=== PATIENT | male | born 1955 | race Caucasian/White ===

== ENCOUNTER 2017-01-22 11:06 | Inpatient (IN) ==
--- NOTE | 2017-01-22 11:31 | Anesthesia Evaluation PreOp ---
Date of Encounter: 01/22/17 Time of Encounter: 11:29 - Past History Planned Operation: left TKA, with robotic assistance Cardiac History: HTN, Hyperlipidemia, Other (CAD) Pulmonary History: Former smoker (stopped 12 yrs ago) GUARD DRIVER History: Denies Any Significant HX Other Medical History: Other (Erectile dysfunction) Anesthesia History: No Prior Anesthetic Complications, Past Anesthesia (right knee, left shoulder, RCR, orchiectomy right) Alcohol Use: none Drug use: none Medications and Allergies 3 Allergy/AdvReac Type Severity Reaction Status Date / Time No Known Allergies Allergy Verified 01/15/17 14:30 - Meds/Allergy Pre-op Review Medications Reviewed: Yes Allergies Reviewed: Yes Beta Blockers on Current Med List: Yes If Beta Blockers taken, Date/Time (Last Dose taken): today 644 Anesthesia Results - Imaging Additional studies: echo: Impressions: Normal left ventricular systolic function, LVEF 65%. Mild left ventricular diastolic dysfunction. Normal right ventricular size and function. No significant valvular dysfunction. stress test 2017: Impression: The exercise capacity was average. Exercise ECG is negative for ischemia. Gated LVEF > 70%. Perfusion imaging was negative for ischemia or infarct. Anesthesia Exam Weight: 92.5kg NPO (# of Hours): 8 - HEENT Pupil (Motor): EOMI Mallampati: II Teeth: Edentulous Oral Opening: Greater than 3 - GUARD DRIVER LOC: Oriented GUARD DRIVER Motor: Normal RUE, Normal LUE, Normal RLE, Normal LLE, Normal Face GUARD DRIVER Sensory: Normal: RUE, LUE, RLE, LLE, Face - Cardiac Rhythm: Regular Murmur: None - Pulmonary Breath Sounds: bilateral Clear Respiratory Effort: Symmetrical Anesthesia Assess/Plan ASA Score: 2 Modified Aura Scale for Level of Consciousness: Cooperative, oriented, and tranquil Anesthetic Plan: General Monitoring Plan: Standard Monitors Recovery Plan: PACU (discussed GA, agrees to block and GA.)
[2017-01-22] MEDS ORDERED: CeFAZolin Syr 2,000MG/20 ML 2,000 MG/20 ML SYRINGE IVPB ONE (12:13)
[2017-01-22] MEDS ORDERED: Ketorolac 15 MG/ML VIAL IVP ONE (12:13)
[2017-01-22] MEDS ORDERED: Ringers Solution, Lactated 1,000 ML IVC SCH ×3 (12:15→20:04)
[2017-01-22] MEDS ORDERED: Dexamethasone 4 MG/ML VIAL IVP ONE (12:17)
[2017-01-22] MEDS ORDERED: Ketorolac 30 MG/ML VIAL IVP ONE (13:15)
[2017-01-22] MEDS ORDERED: Ethanol\\Acetic Acid\\Na Ace\\Ben 1,000 ML IRRIG.SOLN IR ONE (14:37)
--- NOTE | 2017-01-22 14:49 | History & Physical Report ---
Date of Encounter: 01/22/17 Time of Encounter: 14:48 24 Hour HP Update - Instructions Instructions: If the History and Physical is less than 30 days old and was completed prior to A.M. admission and or procedure and has NOT been updated on calendar day of procedure please complete this update prior to performing procedure. - Update Patient reports changes in Medical Condition: No Changes in examination, assessment, or condition: No Changes in Medication: No Preop tests/diagnostics Reviewed: Yes Surgery Remains Indicated: Yes Consent for Planned Operative Procedure(s) Verified: Yes
[2017-01-22] MEDS ORDERED: ROPIVACAINE HCL/PF 0.5% 30 ML VIAL ONE (15:03)
[2017-01-22] MEDS ORDERED: Bupivacaine/Clonidine Syringe 1 EACH SYRINGE ONE (15:04)
[2017-01-22] MEDS ORDERED: Dexamethasone 4 MG/ML VIAL ONE (15:05)
[2017-01-22] MEDS ORDERED: *HR* Succinylcholine 200 MG/10 ML VIAL IVP ONE (15:05)
[2017-01-22] MEDS ORDERED: Lidocaine -MPF 2% 2 ML VIAL ONE (15:05)
[2017-01-22] MEDS ORDERED: *HR* FentaNYL (PF) 100 MCG/2 ML VIAL ONE ×2 (15:05→17:23)
[2017-01-22] MEDS ORDERED: Ondansetron 4 MG/2 ML VIAL ONE (15:05)
[2017-01-22] MEDS ORDERED: *HR* Propofol 200 MG/20 ML VIAL IVP ONE (15:06)
[2017-01-22] MEDS ORDERED: *HR* Midazolam HCl 2 MG/2 ML VIAL ONE (15:06)
--- NOTE | 2017-01-22 15:30 | Anesthesia Procedures ---
Date of Encounter: 01/22/17 Time of Encounter: 11:29 Procedures: Anesthesia - Nerve Block Procedure Date: 01/22/17 Time: 15:10 Pre-op Diagnosis: Arthropathy Left Knee Surgical Procedure: Left TKA Robotic Assisted Checklist: Correct Patient Identifier Correct side: Left Blood Thinner: No Monitor Applied: EKG, BP, Pulse Oximetry Supplemental Oxygen via Nasal Cannula (L/min): 2 Sedation: Versed (mg): 2 Sedation: Fentanyl (mcg): 100 Indication: Post Op Analgesia Pre-op Neuro Deficits: No Block Type: Other (Adductor Canal Block) Catheter placed: No Depth at skin (cm): 3 Sterile Technique: Yes Ultrasound used: Yes Anatomy identified: Yes Visual spread of Local: Yes Blood on Needle Aspiration: No Smooth Injection of Local: Yes Pain with Injection of Local: No Prep: Chlorhexadine Needle: 22 x 50 mm Stimuplex Local: 0.25% Bupivicaine w/Clonidine 20 mcg/cc, Ropivacaine (0.5%) Volume (cc): 30 Number of Attempts: 1 Complications: None/effective block Vitals: Vital Signs/O2 Sat/Glucose, Most Current Temp Pulse Resp BP Pulse Ox 01/22/17 15:08 86 129/83 93 01/22/17 11:51 99.1 F 79 18 116/77 94
[2017-01-22] MEDS ORDERED: Lidocaine -MPF 4% 5 ML AMPUL ONE (15:35)
[2017-01-22] MEDS ORDERED: *HR* Phenylephrine 10 MG/ML VIAL ONE (15:54)
[2017-01-22] MEDS ORDERED: Ketamine *HR* 500 MG/10 ML MDV ONE (16:01)
[2017-01-22] MEDS ORDERED: *HR* HYDROmorphone (PF) 1 MG/ML SYRINGE IVP PRN (17:28)
[2017-01-22] MEDS ORDERED: Ondansetron 4 MG/2 ML VIAL IVP ONE (17:28)
[2017-01-22] MEDS ORDERED: *HR* Promethazine 25 MG/ML VIAL IVP PRN (17:28)
--- NOTE | 2017-01-22 18:40 | Physician Discharge Referral ---
Home Health/Hosp Referral Info Transfer to: Home Health - Respiratory Orders Smoking Cessation: Smoking cessation has been advised. For more information, call the [place] Tobacco Quit Line at 3-691-GRMU-NOW. - Diet/Nutrition Diet/Nutrition Orders: Regular - Activity Activity Orders: Ambulate - Services Needed Following services are medically necessary services: Nursing, Home Health Aide, Physical Therapy, Occupational Therapy Other Treatments: DISCHARGE INSTRUCTIONS Dr. Holder Total Knee Replacement Wound Care -Keep wound / incision area clean and dry. -Keep clear plastic dressing on until follow up -May shower after 3-4 days -No baths or swimming until otherwise instructed. -No submerging the wound under standing water until cleared by your physician ( no baths, hot tubs, swimming pools, etc). Sponge baths are the best way to perform personal hygiene while at the same time protecting the wound from moisture. -No scrubbing the wound. You may "pad dry" the wound, but do not rub, as this may open up he wound and pre-dispose to wound infection. -Do not apply lotions or creams to incision site, unless instructed otherwise. -Observe for redness, swelling, or drainage. Please call the clinic immediately if you have fevers, chills with warmth/redness surrounding wound site or if you notice pus drainage from the wound site Activity -No driving while on narcotic pain medication. -You may be weight-bear as tolerated on both of your lower extremities. -Use crutches or a walker for ambulation. -Range of motion of the knee as tolerated. Sleep with the knee in the knee immobilizer. Reducing the Risk of Blood Clots -You will need to complete a total 4 week course of enteric coated aspirin 325 mg twice daily. Discharge Pain Medications -You will be given a prescription for pain medication. Wean off as tolerated. Do not wait to take the pain medication until the pain is severe, as it will be difficult to "catch up" once this occurs. The pain medication usually reaches its full effect ~1 hour after ingesting. -Your prescribed pain medication may contain Tylenol. You must be careful not to exceed 4,000 mg (4 g) of Tylenol (or generic equivalent), from all sources, within a single 24-hour period. -Some common side effects of the narcotic pain medications (Percocet, Oxycodone , Vicodin, etc) include nausea and itching. Benadryl is a great over the counter medication that helps calm your stomach, decreases your anxiety levels, and minimizes the itching. You can easily purchase this at your local pharmacy as an [id number] medication. Please abide by the instructions as printed on t-he bottle. If your nausea persists, make sure to take small amounts of crackers or other oil inspector foods. - Transfer Medications Home Medications: Alprostadil [Caverject] 40 mcg IC Q72H PRN 01/22/17 [History] Aspirin [Lo-Dose Aspirin EC] 81 mg PO HS 01/22/17 [History] Citalopram [CeleXA] 20 mg PO DAILY 01/22/17 [History] Diclofenac Sodium [Voltaren] 75 mg PO BID 01/22/17 [History] Lovastatin [Lovastatin] 40 mg PO HS 01/22/17 [History] Metoprolol [Lopressor] 50 mg PO BID 01/22/17 [History] Ranolazine [Ranexa] 1,000 mg PO BID 01/22/17 [History] Temazepam [Restoril] 30 mg PO HS 01/22/17 [History] Allergies/Adverse Reactions: 3 Allergy/AdvReac Type Severity Reaction Status Date / Time No Known Allergies Allergy Verified 01/22/17 12:20 Certification: Further, I certify that my clinical findings support that this patient is homebound (i.e. absences from home require considerable and taxing effort and are for medical reasons or nondenominational services or infrequently or short duration when for other reasons) because: Homebound Reason: Patient requires assistance of a person or device to safely leave home Attestation: My signature below is to certify that this patient is under my care and that I, or nurse practitioner, or a physician's virtual customer assistant working with me, has a face-to -face encounter with this patient.
--- NOTE | 2017-01-22 18:45 | Orthopedic Operative Note ---
Date of procedure: 01/22/17 Pre-op diagnosis: Left knee arthritis Post-op diagnosis: same Procedure: 1. Left total knee arthroplasty with robotic assistance Indications: This is a 62-year-old male who has long history of left knee pain with arthritis confirmed on radiographs. The patient has failed conservative treatment including anti-inflammatories therapy and injections. The patient has elected for a left total knee replacement with robotic assistance. The risks and benefits of the procedure were fully explained to the patient. These risks include, but are not limited to, the risk of infection, neurovascular injury, continued pain and stiffness of the knee, need for further surgery, DVT , PE, loss of limb and loss of life. The patient did understand all of these risks and wishes to proceed. Informed consent was then obtained. Operative procedure: The patient was brought back to the OR suite by the anesthesia staff. Adductor canal block was administered by anesthesia. The patient was then placed supine on the operating table and all bony prominences were padded. The anesthesiologist then performed successful general anesthetic for the remainder of the case. The tourniquet was then applied to the upper thigh and the left lower extremity was then prepped and draped in the normal sterile orthopedic fashion. Preoperative antibiotics were then given prior to incision. A timeout was performed confirming the correct patient, site and side , procedure to be performed and any allergies. All were in agreement and we did proceed. An Esmarch bandage was used to exsanguinate the leg, and the tourniquet was elevated to 300 mmHg. A midline 12 cm incision was made from the superior pole of the patella to the tibial tubercle. A medial parapatellar arthrotomy was then used. The patellar was everted, the fat pad was excised. The patella was everted and cut was made at the level of the insertion of the quadriceps and patella tendon. The patella was sized to a 35 the guide was seated and the lug holes are drilled. Knee was brought into flexion. Patient noted to have grade 4 arthritic changes patellofemoral joint and medial compartment. Steinmann pins were placed in the tibia and the femur for the tibial and femoral arrays respectively. Checkpoints were also placed in the tibia and the femur for calculation purposes. The knee including the femur and the tibial was registered. Osteophytes, ACL and PCL were excised at this point. The knee was assessed in full extension with varus and valgus stresses, and in 90 degrees of flexion with varus and valgus stresses. Components were adjusted on the computer for the robotic cut positions. Femoral cuts were made first with robotic assistance, these included the anterior cut, posterior cuts, chamfer cuts. Tibial cut was then performed with robotic assistance as well. Bone fragments were removed, as well as the medial and lateral meniscus. The size 6 femoral guide was seated, and the PS box cut was made. The size 6 tibial tray was seated and prepared with the fin cutter. Trial reduction with the 9 PS Deandra revealed extension of 0 degree and full flexion varus of 3 degrees. No varus-valgus instability. Trial reduction revealed excellent patella tracking. All trial components were removed all bony surfaces were irrigated. Final components were cemented in place, the tibia followed by the femur with the 9 PS poly and patella. The patient had excellent motion, stability on tracking after cement cured. The knee was then irrigated out with diluted betadine, bactisure and 2 L of pulse irrigation. The extensor mechanism was closed with #2 FiberWire suture and #2 PDS suture. The subcutaneous tissue was then irrigated and closed deep with #1 PDS suture superficially with 0 PDS suture and skin was closed with zip tie. The patient was then placed in a sterile dressing and a postoperative brace extubated and transferred to recovery room in stable condition. There were no complications through the case. Postop plan: Patient will be admitted to the floor with normal TKA protocol. Implants: [place] triathlon size 6 PS femur, size 6 tibia, 9 mm PS poly Complications: none Anesthesia: [facility] regional Surgeon: Servando Holder Estimated blood loss (cc): 150 Condition: stable Disposition: PACU
--- NOTE | 2017-01-22 19:59 | Anesthesia Evaluation Post Op ---
Date of Encounter: 01/22/17 Time of Encounter: 19:35 - Vital Signs Vital Signs: Vital Signs/O2 Sat/Glucose, Most Current Temp Pulse Resp BP Pulse Ox 01/22/17 19:40 99.3 F 95 15 146/94 94 01/22/17 19:30 95 15 146/98 96 01/22/17 19:20 99.3 F 93 15 146/94 95 01/22/17 19:10 94 15 153/95 96 01/22/17 19:00 92 14 149/93 97 01/22/17 18:50 99.5 F 96 16 148/94 97 01/22/17 18:40 96 16 146/94 97 01/22/17 18:30 98 16 139/89 93 01/22/17 18:20 98.2 F 91 16 150/97 97 - Lungs Lungs: Clear Ascult./Percussion - Airway Airway: Non-obstructed - Cardiovascular Baseline Rhythm - Mental Status Mental Status: Asleep with brisk response to light stimulation - Pain Pain Scale: 0 Pain Scale used: Numeric (1 - 10) - Nausea Vomiting Nausea Vomiting: Not Present - Hydration Hydration: Ice chips, Has not voided - Discharge PostOp Status: Transfer Patient to floor Anes Supervising Prov Stmt: Pt seen/evaluated, VSS and pt has met criteria for discharge to floor. - MD Micky
[2017-01-22] MEDS ORDERED: *HR* OxyCODONE Immed Rel 5 MG TABLET PO PRN (20:04)
[2017-01-22] MEDS ORDERED: ALPROSTADIL 40 MCG IC PRN (20:04)
[2017-01-22] MEDS ORDERED: Temazepam 15 MG CAPSULE PO PRN (20:04)
[2017-01-22] MEDS ORDERED: Acetaminophen 325 MG TABLET PO PRN (20:04)
[2017-01-22] MEDS ORDERED: MOM Conc 10 ML UD.LIQ PO PRN (20:04)
[2017-01-22] MEDS ORDERED: Sennosides 8.6 MG TABLET PO PRN (20:04)
[2017-01-22] MEDS ORDERED: *HR* Morphine 2 MG/ML SYRINGE IVP PRN (20:04)
[2017-01-22] MEDS ORDERED: Ondansetron 4 MG/2 ML VIAL IVP PRN (20:04)
[2017-01-22] MEDS ORDERED: Naloxone 0.4 MG/ML INJ IVP PRN (20:04)
[2017-01-22] MEDS: Dexamethasone 10 MG/ML VIAL IVP SCH (22:16)
[2017-01-22] MEDS: Celecoxib 100 MG CAPSULE PO SCH (22:16)
[2017-01-22] MEDS: Ranolazine 500 MG TAB.ER.12H PO SCH (22:17)
[2017-01-22] MEDS: Temazepam 15 MG CAPSULE PO SCH (22:17)
[2017-01-23] MEDS: CeFAZolin Premix DUPLEX 2,000 MG/50 ML BAG IVPB SCH ×2 (00:33→10:18)
[2017-01-23] MEDS: Ketorolac 15 MG/ML VIAL IVP SCH ×4 (00:33→18:49)
[2017-01-23 05:17] LABS: Hemoglobin 12.7 g/dL (12.9-16.9)
[2017-01-23 05:33] LABS: BUN/Creatinine Ratio 13 (6-26); Blood Urea Nitrogen 16 mg/dL (8-26); Calcium 8.3 mg/dL (8.6-10.8); Carbon Dioxide 22 mEq/L (19-29); Chloride 106 mEq/L (98-109); Glucose 249 mg/dL (70-99); Osmolality,Calculated 296 (280-300); Potassium 4.2 mEq/L (3.5-4.5); Sodium 138 mEq/L (136-145); eGFR For African Americans > 60 (> 60); eGFR For Non-African Americans 58 (> 60)
--- NOTE | 2017-01-23 08:39 | Orthopedics Progress Note ---
Date of Encounter: 01/23/17 Time of Encounter: 08:37 Subjective Interval history: S: Doing well POD#1 s/p L TKA. Pain well controlled. No N/V O:AFVSS GEN: NAD, AAOx3 LLE: Dress c/d/i SILT s/s/t/sp/dp +EHL/PF/DF A/P POD#1 s/p L TKA -Ambulate with PT -PO pain control -D/c when pain controlled Objective Vital signs: Vital Signs Temp Pulse Resp BP Pulse Ox 01/23/17 06:33 98 F 87 14 123/87 96 01/23/17 06:01 97.9 F 81 13 119/80 95 01/23/17 01:05 98.1 F 100 16 115/76 94 01/22/17 21:35 98.2 F 104 16 146/92 95 01/22/17 20:35 98.9 F 95 18 142/87 92 01/22/17 20:05 98.3 F 99 16 154/92 93 01/22/17 19:40 99.3 F 95 15 146/94 94 01/22/17 19:30 95 15 146/98 96 01/22/17 19:20 99.3 F 93 15 146/94 95 01/22/17 19:10 94 15 153/95 96 01/22/17 19:00 92 14 149/93 97 01/22/17 18:50 99.5 F 96 16 148/94 97 01/22/17 18:40 96 16 146/94 97 01/22/17 18:30 98 16 139/89 93 01/22/17 18:20 98.2 F 91 16 150/97 97 01/22/17 15:08 86 129/83 93 01/22/17 11:51 99.1 F 79 18 116/77 94 Intake and Output 01/22/17 01/23/17 01/23/17 23:59 07:59 15:59 Output Total 100 / 100 400 / 400 Balance -100 / -100 -400 / -400 Output: Urine 0 / 0 400 / 400 Estimated Blood Loss 100 / 100 - Labs CBC & BMP: 01/23/17 05:03 01/23/17 05:03 Labs: Abnormal lab results Hgb 12.7 g/dL (12.9-16.9) L 01/23/17 05:03 Creatinine 1.27 mg/dL (0.72-1.25) H 01/23/17 05:03 Est GFR (Non-Af Amer) 58 (> 60) L 01/23/17 05:03 Glucose 249 mg/dL (70-99) H 01/23/17 05:03 Calcium 8.3 mg/dL (8.6-10.8) L 01/23/17 05:03 - VTE Documentation of Mechanical Device: Venous foot pump, device Consult Discharge Plan - Plan Additional Instructions: DISCHARGE INSTRUCTIONS Dr. Holder Total Knee Replacement Wound Care -Keep wound / incision area clean and dry. -Keep clear plastic dressing on until follow up -May shower after 3-4 days -No baths or swimming until otherwise instructed. -No submerging the wound under standing water until cleared by your physician ( no baths, hot tubs, swimming pools, etc). Sponge baths are the best way to perform personal hygiene while at the same time protecting the wound from moisture. -No scrubbing the wound. You may "pad dry" the wound, but do not rub, as this may open up he wound and pre-dispose to wound infection. -Do not apply lotions or creams to incision site, unless instructed otherwise. -Observe for redness, swelling, or drainage. Please call the clinic immediately if you have fevers, chills with warmth/redness surrounding wound site or if you notice pus drainage from the wound site Activity -No driving while on narcotic pain medication. -You may be weight-bear as tolerated on both of your lower extremities. -Use crutches or a walker for ambulation. -Range of motion of the knee as tolerated. Sleep with the knee in the knee immobilizer. Reducing the Risk of Blood Clots -You will need to complete a total 4 week course of enteric coated aspirin 325 mg twice daily. Discharge Pain Medications -You will be given a prescription for pain medication. Wean off as tolerated. Do not wait to take the pain medication until the pain is severe, as it will be difficult to "catch up" once this occurs. The pain medication usually reaches its full effect ~1 hour after ingesting. -Your prescribed pain medication may contain Tylenol. You must be careful not to exceed 4,000 mg (4 g) of Tylenol (or generic equivalent), from all sources, within a single 24-hour period. -Some common side effects of the narcotic pain medications (Percocet, Oxycodone , Vicodin, etc) include nausea and itching. Benadryl is a great over the counter medication that helps calm your stomach, decreases your anxiety levels, and minimizes the itching. You can easily purchase this at your local pharmacy as an upaz-ecv-aclourv medication. Please abide by the instructions as printed on t-he bottle. If your nausea persists, make sure to take small amounts of crackers or other district customs director foods. Referrals: David Mak DO [Primary Care Provider] -
[2017-01-23] MEDS: Celecoxib 100 MG CAPSULE PO SCH ×2 (10:18→20:55)
[2017-01-23] MEDS: Ranolazine 500 MG TAB.ER.12H PO SCH ×2 (10:18→20:55)
[2017-01-23] MEDS: Dexamethasone 10 MG/ML VIAL IVP SCH (10:19)
[2017-01-23] MEDS: *HR* HYDROcodone/Acet 5/325 mg TABLET PO PRN (16:22)
[2017-01-23] MEDS: *HR* Enoxaparin 30 MG/0.3 ML SYRINGE SQ SCH (18:49)
[2017-01-23] MEDS: Temazepam 15 MG CAPSULE PO SCH (20:55)
[2017-01-24 05:40] LABS: Hematocrit 32.6 % (37.5-50.1)
[2017-01-24 05:51] LABS: Hemoglobin 10.7 g/dL (12.9-16.9)
[2017-01-24] MEDS: *HR* Enoxaparin 30 MG/0.3 ML SYRINGE SQ SCH (06:00)
[2017-01-24] MEDS: *HR* HYDROcodone/Acet 5/325 mg TABLET PO PRN ×2 (06:02→11:34)
[2017-01-24 06:05] LABS: BUN/Creatinine Ratio 24 (6-26); Blood Urea Nitrogen 23 mg/dL (8-26); Calcium 8.3 mg/dL (8.6-10.8); Carbon Dioxide 25 mEq/L (19-29); Chloride 106 mEq/L (98-109); Glucose 123 mg/dL (70-99); Osmolality,Calculated 289 (280-300); Potassium 4.2 mEq/L (3.5-4.5); Sodium 137 mEq/L (136-145); eGFR For African Americans > 60 (> 60); eGFR For Non-African Americans > 60 (> 60)
--- NOTE | 2017-01-24 08:02 | Orthopedics Progress Note ---
Date of Encounter: 01/24/17 Time of Encounter: 08:01 Subjective Interval history: S: Doing well POD2 s/p L TKA. Pain well controlled. No N/V. Ambulating comfortably O:AFVSS GEN: NAD, AAOx3 LLE: Dress c/d/i SILT s/s/t/sp/dp +EHL/PF/DF A/P POD#2 s/p L TKA -Ambulate with PT -PO pain control -D/c likely today Objective Vital signs: Vital Signs Temp Pulse Resp BP Pulse Ox 01/24/17 06:40 97.9 F 78 16 121/76 94 01/23/17 23:53 97.7 F 73 15 116/72 92 01/23/17 15:10 98 F 84 16 119/76 97 01/23/17 10:00 98.3 F 79 16 128/82 95 01/23/17 09:11 96 Intake and Output 01/23/17 01/24/17 01/24/17 23:59 07:59 15:59 Intake Total 360 / 360 Output Total 400 / 400 Balance -40 / -40 Intake: Oral 360 / 360 Output: Urine 400 / 400 Other: Meal Dinner Percent of Meal Consumed 100% - Labs CBC & BMP: 01/24/17 05:14 01/24/17 05:14 Labs: Abnormal lab results Hgb 10.7 g/dL (12.9-16.9) L D 01/24/17 05:14 Hct 32.6 % (37.5-50.1) L 01/24/17 05:14 Glucose 123 mg/dL (70-99) H 01/24/17 05:14 Calcium 8.3 mg/dL (8.6-10.8) L 01/24/17 05:14 - VTE Documentation of Mechanical Device: Venous foot pump, device Consult Discharge Plan - Plan Additional Instructions: DISCHARGE INSTRUCTIONS Dr. Holder Total Knee Replacement Wound Care -Keep wound / incision area clean and dry. -Keep clear plastic dressing on until follow up -May shower after 3-4 days -No baths or swimming until otherwise instructed. -No submerging the wound under standing water until cleared by your physician ( no baths, hot tubs, swimming pools, etc). Sponge baths are the best way to perform personal hygiene while at the same time protecting the wound from moisture. -No scrubbing the wound. You may "pad dry" the wound, but do not rub, as this may open up he wound and pre-dispose to wound infection. -Do not apply lotions or creams to incision site, unless instructed otherwise. -Observe for redness, swelling, or drainage. Please call the clinic immediately if you have fevers, chills with warmth/redness surrounding wound site or if you notice pus drainage from the wound site Activity -No driving while on narcotic pain medication. -You may be weight-bear as tolerated on both of your lower extremities. -Use crutches or a walker for ambulation. -Range of motion of the knee as tolerated. Sleep with the knee in the knee immobilizer. Reducing the Risk of Blood Clots -You will need to complete a total 4 week course of enteric coated aspirin 325 mg twice daily. Discharge Pain Medications -You will be given a prescription for pain medication. Wean off as tolerated. Do not wait to take the pain medication until the pain is severe, as it will be difficult to "catch up" once this occurs. The pain medication usually reaches its full effect ~1 hour after ingesting. -Your prescribed pain medication may contain Tylenol. You must be careful not to exceed 4,000 mg (4 g) of Tylenol (or generic equivalent), from all sources, within a single 24-hour period. -Some common side effects of the narcotic pain medications (Percocet, Oxycodone , Vicodin, etc) include nausea and itching. Benadryl is a great over the counter medication that helps calm your stomach, decreases your anxiety levels, and minimizes the itching. You can easily purchase this at your local pharmacy as an [id number]-naj-rvuzvcj medication. Please abide by the instructions as printed on t-he bottle. If your nausea persists, make sure to take small amounts of crackers or other rubber compounder formulator foods. Referrals: David Mak DO [Primary Care Provider] - Servando Holder MD [Non-Partnered Physician] - 01/29/17 9:45 am (& also, , February 06, 2017 at 10:45 AM) Tod Hayden DO [Partnered Physician] - 02/18/17 9:25 am
[2017-01-24] MEDS: Celecoxib 100 MG CAPSULE PO SCH (08:36)
[2017-01-24] MEDS: Ranolazine 500 MG TAB.ER.12H PO SCH (08:36)
--- NOTE | 2017-01-24 10:44 | Discharge Summary ---
Date of Encounter: 01/24/17 Time of Encounter: 10:43 - Discharge Medications Home Medications: Alprostadil [Caverject] 40 mcg IC Q72H PRN 01/22/17 [History] Aspirin [Lo-Dose Aspirin EC] 81 mg PO HS 01/22/17 [History] Citalopram [CeleXA] 20 mg PO DAILY 01/22/17 [History] Diclofenac Sodium [Voltaren] 75 mg PO BID 01/22/17 [History] Lovastatin [Lovastatin] 40 mg PO HS 01/22/17 [History] Metoprolol [Lopressor] 50 mg PO BID 01/22/17 [History] Ranolazine [Ranexa] 1,000 mg PO BID 01/22/17 [History] Temazepam [Restoril] 30 mg PO HS 01/22/17 [History] Allergies/Adverse Reactions: 3 Allergy/AdvReac Type Severity Reaction Status Date / Time No Known Allergies Allergy Verified 01/22/17 12:20 Labs on day of discharge: Labs from last 24 hours 01/24/17 01/24/17 05:14 05:14 Hgb 10.7 L D Hct 32.6 L Sodium 137 Potassium 4.2 Chloride 106 Carbon Dioxide 25 BUN 23 Creatinine 0.96 Est GFR ( Amer) > 60 Est GFR (Non-Af Amer) > 60 BUN/Creatinine Ratio 24 Glucose 123 H Calculated Osmolality 289 Calcium 8.3 L - Impressions ITS Impressions Knee X-Ray 01/22/17 00:00 IMPRESSION: Intact knee arthroplasty with patellar resurfacing. D/ /22/2017 19:12:57 Isaac Bustamante MD / rancho Interpreting Provider: Isaac Bustamante MD Date of admission: 01/22/17 19:54 Primary care physician: Elaine Brown Consults: 01/22/17 20:04 Consult to Occupational Therapy [CONS] Routine Comment: Evaluate, develop and implement POC Reason for Consult: post knee surgery Consult to Orthopedic Navigator [CONS] [CONS] Routine Consult to Physical Therapy [CONS] Routine Comment: Evaluate, develop and impliment POC Reason for Consult: post knee surgery Consult to Laborer Adjustable [employer] Joist [CONS] Routine Reason for SW Consult: post op joint replacement RT Post Op Consult [CONS] Routine - Patient Status Disposition: Home Health Service Condition: Good Functional capacity at discharge: uses cane/walker Overall status at discharge: patient is progressing back to baseline - Discharge Instructions Follow Up With: David Mak DO [Primary Care Provider] - Servando Holder MD [Non-Partnered Physician] - 01/29/17 9:45 am (& also, , February 06, 2017 at 10:45 AM) Tod Hayden DO [Partnered Physician] - 02/18/17 9:25 am Additional Instructions: DISCHARGE INSTRUCTIONS Dr. Holder Total Knee Replacement Wound Care -Keep wound / incision area clean and dry. -Keep clear plastic dressing on until follow up -May shower after 3-4 days -No baths or swimming until otherwise instructed. -No submerging the wound under standing water until cleared by your physician ( no baths, hot tubs, swimming pools, etc). Sponge baths are the best way to perform personal hygiene while at the same time protecting the wound from moisture. -No scrubbing the wound. You may "pad dry" the wound, but do not rub, as this may open up he wound and pre-dispose to wound infection. -Do not apply lotions or creams to incision site, unless instructed otherwise. -Observe for redness, swelling, or drainage. Please call the clinic immediately if you have fevers, chills with warmth/redness surrounding wound site or if you notice pus drainage from the wound site Activity -No driving while on narcotic pain medication. -You may be weight-bear as tolerated on both of your lower extremities. -Use crutches or a walker for ambulation. -Range of motion of the knee as tolerated. Sleep with the knee in the knee immobilizer. Reducing the Risk of Blood Clots -You will need to complete a total 4 week course of enteric coated aspirin 325 mg twice daily. Discharge Pain Medications -You will be given a prescription for pain medication. Wean off as tolerated. Do not wait to take the pain medication until the pain is severe, as it will be difficult to "catch up" once this occurs. The pain medication usually reaches its full effect ~1 hour after ingesting. -Your prescribed pain medication may contain Tylenol. You must be careful not to exceed 4,000 mg (4 g) of Tylenol (or generic equivalent), from all sources, within a single 24-hour period. -Some common side effects of the narcotic pain medications (Percocet, Oxycodone , Vicodin, etc) include nausea and itching. Benadryl is a great over the counter medication that helps calm your stomach, decreases your anxiety levels, and minimizes the itching. You can easily purchase this at your local pharmacy as an [id number] medication. Please abide by the instructions as printed on t-he bottle. If your nausea persists, make sure to take small amounts of crackers or other tool and die maker level five foods. - Diet and Activity Activity: as per physical therapy Diet: advance to your usual diet - Hospital Course Hospital course: Mr. Karimi is a 62 year old male admitted following a Left total knee replacement. He did well afterward with PT and was able to be discharged POD#2 to home in stable condition. - Time Spent with Patient Total time spent providing and/or coordinating discharge services: - VTE Documentation of Mechanical Device: Venous foot pump, device
[2017-01-24] MEDS ORDERED: FLU VACC QS2017-18(6M-36M)/PF 0.5 ML SYRINGE IM ONE (11:31)
[2017-01-24] MEDS ORDERED: FLUARIX QUAD 2017-18 36MOS UP/PF 0.5 ML SYRINGE IM ONE (11:35)
[2017-01-24 11:42] VITALS: BP 126/78
== END 2017-01-24 16:11 | disposition home health service (06) | DRG 470 ==
LOC: SAMDAY 11:06 → 3NENU 19:54
PROVIDERS: ADMIT Orthopaedic Surgery Sports Medicine; ATTEND Orthopaedic Surgery Sports Medicine

== ENCOUNTER 2019-04-11 11:23 | Inpatient (IN) ==
[2019-04-11] MEDS ORDERED: Aspirin 81 MG TAB.CHEW PO ONE (11:33)
[2019-04-11] MEDS ORDERED: Ondansetron 4 MG/2 ML VIAL IVP ONE (11:54)
[2019-04-11] MEDS ORDERED: Nitroglycerin 0.4 MG TAB.SUBL SL PRN (11:54)
[2019-04-11 11:56] LABS: Basophils % 0.2 %; Eosinophils % 0.1 %; Hematocrit 45.6 % (37.5-50.1); Hemoglobin 15.4 g/dL (12.9-16.9); Immature Granulocytes % 0.4 % (0-4); Lymphocytes # 1.5 K/mcL (0.6-4.6); Lymphocytes % 11.3 %; Mean Corpuscular HGB Conc 33.8 g/dL (31.6-35.5); Mean Corpuscular Hemoglobin 30.1 pg (28.0-33.3); Mean Corpuscular Volume 89.2 fL (83.0-100.0); Mean Platelet Volume 9.5 fL (9.4-12.4); Monocytes # 0.6 K/mcL (0.0-1.3); Monocytes % 4.3 %; Neutrophils # 11.4 K/mcL (1.6-8.9); Platelet Count 193 K/mcL (140-400); Red Blood Count 5.11 M/mcL (4.19-5.50); Red Cell Distribution Width 12.9 % (11.5-14.5); Segmented Neutrophils % 83.7 %; White Blood Count 13.6 K/mcL (4.3-11.1)
[2019-04-11 12:05] LABS: Prothrombin Time 11.6 Seconds (9.4-12.1)
[2019-04-11 12:08] LABS: Activated Partial Thrombo Time 30.4 Seconds (26.0-36.0)
[2019-04-11] MEDS ORDERED: *HR* Heparin 5,000 UNIT/ML VIAL IVP PRN (12:21)
[2019-04-11] MEDS ORDERED: *HR* Heparin 5,000 UNIT/ML VIAL IVP ONE (12:21)
[2019-04-11 12:23] LABS: Troponin I 6.07 ng/mL (< 0.04)
[2019-04-11 12:28] LABS: Alanine Aminotransferase 28 Units/L (7-52); Albumin 4.6 g/dL (3.5-5.7); Albumin/Globulin Ratio 1.5 (1.1-2.2); Alkaline Phosphatase 83 Units/L (34-104); Aspartate Amino Transferase 85 Units/L (13-39); BUN/Creatinine Ratio 14 (6-26); Bilirubin,Direct 0.1 mg/dL (0.0-0.2); Bilirubin,Indirect 0.4 mg/dL (0.0-1.0); Bilirubin,Total 0.5 mg/dL (0.3-1.0); Blood Urea Nitrogen 15 mg/dL (8-23); Calcium 9.9 mg/dL (8.6-10.3); Carbon Dioxide 27 mEq/L (23-29); Chloride 104 mEq/L (98-107); Globulin 3.1 g/dL (2.4-3.5); Glucose 149 mg/dL (70-105); Osmolality,Calculated 284 (280-300); Potassium 4.2 mEq/L (3.5-5.1); Sodium 135 mEq/L (136-145); Total Protein 7.7 g/dL (6.4-8.9); eGFR For African Americans > 60 (> 60); eGFR For Non-African Americans > 60 (> 60)
[2019-04-11 12:33] LABS: Heparin anti-factor XA UFH 0.04 IU/mL (0.30-0.70)
[2019-04-11] MEDS: Heparin 25,000 UNIT/250 ML D5W 25,000 UNIT/250 ML IV.SOLN IVC SCH (12:33)
[2019-04-11] MEDS ORDERED: Naloxone 0.4 MG/ML INJ IVP PRN (12:45)
[2019-04-11] MEDS ORDERED: Ondansetron 4 MG/2 ML VIAL IVP PRN (12:45)
[2019-04-11] MEDS: Ringers Solution, Lactated 1,000 ML IVC SCH (15:27)
[2019-04-11] MEDS ORDERED: 0.9 % Sodium Chloride 1,000 ML ONE ×2 (15:43→16:03)
[2019-04-11] MEDS ORDERED: *HR* Heparin 10,000 UNIT/10 ML VIAL ONE (15:44)
[2019-04-11] MEDS ORDERED: ISOVUE-370 200 ML INFUS..BTL ONE ×3 (15:44→16:45)
[2019-04-11] MEDS ORDERED: Nitroglycerin 1,000 MCG/10 ML VIAL IV ONE (15:44)
[2019-04-11] MEDS ORDERED: Heparin 1,000 UNITS/500 mL 500 ML ONE ×2 (15:44→16:45)
[2019-04-11] MEDS ORDERED: *HR* FentaNYL (PF) 100 MCG/2 ML VIAL ONE (16:03)
[2019-04-11] MEDS ORDERED: *HR* Midazolam HCl 2 MG/2 ML VIAL ONE (16:03)
[2019-04-11] MEDS: Metoprolol XL (24 HR) Succ 25 MG TAB.ER.24H PO SCH (17:28)
[2019-04-11] MEDS ORDERED: Melatonin 3 MG TABLET PO STA (22:29)
[2019-04-12] MEDS: Ringers Solution, Lactated 1,000 ML IVC SCH (05:04)
[2019-04-12 06:36] LABS: Basophils % 0.2 %; Eosinophils # 0.1 K/mcL (0.0-0.6); Eosinophils % 0.5 %; Hematocrit 40.9 % (37.5-50.1); Immature Granulocytes % 0.3 % (0-4); Lymphocytes # 2.3 K/mcL (0.6-4.6); Lymphocytes % 22.1 %; Mean Corpuscular HGB Conc 33.3 g/dL (31.6-35.5); Mean Corpuscular Hemoglobin 30.1 pg (28.0-33.3); Mean Corpuscular Volume 90.5 fL (83.0-100.0); Mean Platelet Volume 9.5 fL (9.4-12.4); Monocytes # 0.9 K/mcL (0.0-1.3); Monocytes % 8.1 %; Neutrophils # 7.2 K/mcL (1.6-8.9); Platelet Count 141 K/mcL (140-400); Red Blood Count 4.52 M/mcL (4.19-5.50); Red Cell Distribution Width 13.2 % (11.5-14.5); Segmented Neutrophils % 68.8 %; White Blood Count 10.5 K/mcL (4.3-11.1)
[2019-04-12 06:38] LABS: Hemoglobin 13.6 g/dL (12.9-16.9)
[2019-04-12] MEDS: *HR* Heparin 5,000 UNIT/ML VIAL IVP PRN (06:55)
[2019-04-12 06:56] LABS: BUN/Creatinine Ratio 17 (6-26); Blood Urea Nitrogen 17 mg/dL (8-23); Calcium 8.9 mg/dL (8.6-10.3); Carbon Dioxide 26 mEq/L (23-29); Chloride 104 mEq/L (98-107); Chol/HDL Ratio 3.6 (0-4.9); Cholesterol 119 mg/dL (< 200); Glucose 127 mg/dL (70-105); HDL Cholesterol 33 mg/dL (40-59); LDL Cholesterol,Calculated 32 mg/dL (0-99); Magnesium 1.8 mg/dL (1.6-2.6); Osmolality,Calculated 285 (280-300); Potassium 3.9 mEq/L (3.5-5.1); Sodium 136 mEq/L (136-145); Triglycerides 269 mg/dL (< 150); eGFR For African Americans > 60 (> 60); eGFR For Non-African Americans > 60 (> 60)
[2019-04-12] MEDS: Aspirin Enteric Coated 81 MG Tablet PO SCH (07:49)
[2019-04-12] MEDS: Metoprolol XL (24 HR) Succ 25 MG TAB.ER.24H PO SCH (07:49)
[2019-04-12 09:19] LABS: Estimated Average Glucose 123 mg/dl
[2019-04-12] MEDS ORDERED: Melatonin 3 MG TABLET PO PRN (12:48)
[2019-04-12] MEDS: Loratadine 10 MG TABLET PO SCH (14:07)
[2019-04-12] MEDS ORDERED: 0.9 % Sodium Chloride 1,000 ML ONE (15:56)
[2019-04-12] MEDS ORDERED: Nitroglycerin 1,000 MCG/10 ML VIAL IV ONE (15:56)
[2019-04-12] MEDS ORDERED: *HR* Heparin 10,000 UNIT/10 ML VIAL ONE (15:56)
[2019-04-12] MEDS ORDERED: Heparin 1,000 UNITS/500 mL 500 ML ONE (15:56)
[2019-04-12] MEDS ORDERED: ISOVUE-370 200 ML INFUS..BTL ONE ×2 (15:56→16:49)
[2019-04-12] MEDS ORDERED: *HR* Midazolam HCl 2 MG/2 ML VIAL ONE (16:22)
[2019-04-12] MEDS ORDERED: *HR* FentaNYL (PF) 100 MCG/2 ML VIAL ONE (16:22)
[2019-04-12] MEDS: Heparin 25,000 UNIT/250 ML D5W 25,000 UNIT/250 ML IV.SOLN IVC SCH (19:05)
[2019-04-12] MEDS: Ranolazine 500 MG TAB.ER.12H PO SCH (20:04)
[2019-04-12] MEDS: Temazepam 15 MG CAPSULE PO SCH (20:05)
[2019-04-13 02:09] LABS: Hemoglobin 13.4 g/dL (12.9-16.9); Mean Corpuscular HGB Conc 33.5 g/dL (31.6-35.5); Mean Corpuscular Hemoglobin 30.3 pg (28.0-33.3); Mean Corpuscular Volume 90.5 fL (83.0-100.0); Mean Platelet Volume 9.9 fL (9.4-12.4); Platelet Count 118 K/mcL (140-400); Red Blood Count 4.42 M/mcL (4.19-5.50); Red Cell Distribution Width 13.1 % (11.5-14.5); White Blood Count 6.8 K/mcL (4.3-11.1)
[2019-04-13 02:31] LABS: BUN/Creatinine Ratio 19 (6-26); Blood Urea Nitrogen 18 mg/dL (8-23); Calcium 8.5 mg/dL (8.6-10.3); Carbon Dioxide 24 mEq/L (23-29); Chloride 104 mEq/L (98-107); Glucose 102 mg/dL (70-105); Magnesium 1.7 mg/dL (1.6-2.6); Osmolality,Calculated 286 (280-300); Potassium 3.5 mEq/L (3.5-5.1); Sodium 137 mEq/L (136-145); eGFR For African Americans > 60 (> 60); eGFR For Non-African Americans > 60 (> 60)
[2019-04-13] MEDS: Loratadine 10 MG TABLET PO SCH (08:56)
[2019-04-13] MEDS: Ranolazine 500 MG TAB.ER.12H PO SCH ×2 (08:56→20:38)
[2019-04-13] MEDS: Metoprolol XL (24 HR) Succ 25 MG TAB.ER.24H PO SCH (08:56)
[2019-04-13] MEDS: Aspirin Enteric Coated 81 MG Tablet PO SCH (08:56)
[2019-04-13 16:00] LABS: Bilirubin,Urine Negative (Negative); Blood,Urine Negative (Negative); Clarity,Urine Clear (Clear); Color,Urine Yellow (Yellow); Glucose,Urine (UA) Normal (Normal); Ketones,Urine Negative (Negative); Leukocyte Esterase,Urine Negative (Negative); Nitrite,Urine Negative (Negative); Protein,Urine Negative (Neg-Trace); Specific Gravity,Urine 1.008 (1.010-1.025); Urobilinogen,Urine Normal (Normal)
[2019-04-13] MEDS: Heparin 25,000 UNIT/250 ML D5W 25,000 UNIT/250 ML IV.SOLN IVC SCH (20:09)
[2019-04-13] MEDS: Temazepam 15 MG CAPSULE PO SCH (20:38)
[2019-04-13] MEDS: Sennosides/Docusate Sodium TABLET PO SCH (20:38)
[2019-04-14] MEDS: *HR* Heparin 5,000 UNIT/ML VIAL IVP PRN (01:48)
[2019-04-14 02:05] LABS: Hematocrit 40.7 % (37.5-50.1); Hemoglobin 13.8 g/dL (12.9-16.9); Mean Corpuscular HGB Conc 33.9 g/dL (31.6-35.5); Mean Corpuscular Hemoglobin 30.1 pg (28.0-33.3); Mean Corpuscular Volume 88.9 fL (83.0-100.0); Mean Platelet Volume 9.8 fL (9.4-12.4); Platelet Count 126 K/mcL (140-400); Red Blood Count 4.58 M/mcL (4.19-5.50); Red Cell Distribution Width 12.9 % (11.5-14.5); White Blood Count 7.1 K/mcL (4.3-11.1)
[2019-04-14 02:32] LABS: BUN/Creatinine Ratio 17 (6-26); Blood Urea Nitrogen 17 mg/dL (8-23); Calcium 8.8 mg/dL (8.6-10.3); Carbon Dioxide 23 mEq/L (23-29); Chloride 107 mEq/L (98-107); Glucose 105 mg/dL (70-105); Osmolality,Calculated 286 (280-300); Potassium 3.6 mEq/L (3.5-5.1); Sodium 137 mEq/L (136-145); eGFR For African Americans > 60 (> 60); eGFR For Non-African Americans > 60 (> 60)
[2019-04-14] MEDS: Ranolazine 500 MG TAB.ER.12H PO SCH ×2 (08:17→20:55)
[2019-04-14] MEDS: Sennosides/Docusate Sodium TABLET PO SCH ×2 (08:17→20:55)
[2019-04-14] MEDS: Metoprolol XL (24 HR) Succ 50 MG TAB.ER.24H PO SCH (08:18)
[2019-04-14] MEDS: Aspirin Enteric Coated 81 MG Tablet PO SCH (08:18)
[2019-04-14] MEDS: Loratadine 10 MG TABLET PO SCH (08:18)
[2019-04-14] MEDS ORDERED: Chlorhexidine Rinse 15 ML MOUTHWASH MM SCH (09:00)
[2019-04-14] MEDS: Heparin 25,000 UNIT/250 ML D5W 25,000 UNIT/250 ML IV.SOLN IVC SCH (19:12)
[2019-04-14] MEDS: Temazepam 15 MG CAPSULE PO SCH (20:55)
[2019-04-14] MEDS: Chlorhexidine Rinse 15 ML MOUTHWASH MM SCH (20:56)
[2019-04-15 02:40] LABS: BUN/Creatinine Ratio 15 (6-26); Blood Urea Nitrogen 16 mg/dL (8-23); Calcium 9.2 mg/dL (8.6-10.3); Carbon Dioxide 23 mEq/L (23-29); Chloride 106 mEq/L (98-107); Glucose 116 mg/dL (70-105); Magnesium 1.8 mg/dL (1.6-2.6); Osmolality,Calculated 286 (280-300); Phosphorous 3.7 mg/dL (2.7-4.5); Sodium 137 mEq/L (136-145); eGFR For African Americans > 60 (> 60); eGFR For Non-African Americans > 60 (> 60)
[2019-04-15 02:42] LABS: Basophils % 0.3 %; Eosinophils # 0.2 K/mcL (0.0-0.6); Eosinophils % 2.5 %; Immature Granulocytes % 0.6 % (0-4); Lymphocytes % 24.9 %; Mean Corpuscular Hemoglobin 31.1 pg (28.0-33.3); Mean Corpuscular Volume 88.9 fL (83.0-100.0); Mean Platelet Volume 9.9 fL (9.4-12.4); Monocytes # 0.8 K/mcL (0.0-1.3); Monocytes % 9.5 %; Platelet Count 131 K/mcL (140-400); Segmented Neutrophils % 62.2 %
[2019-04-15] MEDS ORDERED: Dextrose 50 % in Water (Vial) 30 ML, Sodium Bicarbonate 20 MEQ, Lidocaine 1% 5 ML, Insu... TH ONE ×3 (06:00)
[2019-04-15] MEDS ORDERED: Dextrose 50 % in Water (Vial) 30 ML, Sodium Bicarbonate 20 MEQ, Potassium Chloride 15 M... TH ONE (06:00)
[2019-04-15] MEDS ORDERED: Insulin Human Regular 100 UNIT in 0.9 % Sodium Chloride 100 ML IV PRN (06:00)
[2019-04-15] MEDS ORDERED: Heparin 15,000 UNIT in 0.9 % Sodium Chloride 500 ML IV ONE (06:00)
[2019-04-15] MEDS ORDERED: Norepinephrine 4 MG in 0.9 % Sodium Chloride 250 ML IVC PRN (06:00)
[2019-04-15] MEDS: Aspirin Enteric Coated 81 MG Tablet PO SCH (06:07)
[2019-04-15] MEDS: Metoprolol XL (24 HR) Succ 50 MG TAB.ER.24H PO SCH (06:07)
[2019-04-15] MEDS: Chlorhexidine Rinse 15 ML MOUTHWASH MM SCH ×2 (06:10→21:31)
[2019-04-15] MEDS ORDERED: *HR* FentaNYL (PF) 1,000 MCG/20 ML VIAL ONE (06:52)
[2019-04-15] MEDS ORDERED: *HR* PHENYLEPHRINE 1,000 MCG/10 ML SYRINGE IVP ONE ×2 (06:52→13:03)
[2019-04-15] MEDS ORDERED: *HR* Rocuronium Bromide 50 MG/5 ML VIAL ONE ×3 (06:52→15:50)
[2019-04-15] MEDS ORDERED: *HR* Midazolam HCl 5 MG/5 ML VIAL IVP ONE ×2 (06:52→15:07)
[2019-04-15] MEDS ORDERED: Famotidine 20 MG/2 ML VIAL ONE (06:55)
[2019-04-15] MEDS ORDERED: *HR* Etomidate 20 MG/10 ML AMPUL IVP ONE (06:55)
[2019-04-15] MEDS ORDERED: Protamine Sulfate 250 MG/25 ML VIAL IVP ONE (06:56)
[2019-04-15] MEDS ORDERED: Tranexamic Acid 1,000 MG/10 ML VIAL ONE ×2 (06:56→12:31)
[2019-04-15] MEDS ORDERED: Calcium Gluconate 1,000 MG/10 ML VIAL ONE (06:56)
[2019-04-15] MEDS ORDERED: CeFAZolin Syr 2,000MG/20 ML 2,000 MG/20 ML SYRINGE IVPB ONE (07:00)
[2019-04-15] MEDS ORDERED: NiCARdipine 2.5 MG/10 ML Syringe IVPB ONE ×2 (07:00→14:27)
[2019-04-15] MEDS ORDERED: *HR* Heparin 10,000 UNIT/10 ML VIAL IV ONE ×2 (07:40→14:18)
[2019-04-15] MEDS ORDERED: Sodium Bicarbonate 50 MEQ/50 ML VIAL IVC ONE (07:40)
[2019-04-15] MEDS ORDERED: Albumin Human 5% 25.0 GM/500 ML IV.SOLN ONE (09:41)
[2019-04-15 10:04] LABS: ABG Base Excess -1 mEq/L (-2 to 3); ABG Chloride 104 mEq/L (98-107); ABG Glucose 117 mg/dL (60-95); ABG HCO3 26 mEq/L (21-27); ABG Ionized Calcium 1.28 mmol/L (1.15-1.35); ABG Oxygen Saturation 100 % (95-98); ABG PCO2 49 mmHg (35-45); ABG PH 7.33 pH Units (7.32-7.45); ABG PO2 225 mmHg (85-104); ABG TCO2 27 mEq/L (20-26)
[2019-04-15 11:14] LABS: ABG Base Excess -3 mEq/L (-2 to 3); ABG Chloride 106 mEq/L (98-107); ABG Glucose 148 mg/dL (60-95); ABG HCO3 23 mEq/L (21-27); ABG Ionized Calcium 1.12 mmol/L (1.15-1.35); ABG Oxygen Saturation 99 % (95-98); ABG PCO2 43 mmHg (35-45); ABG PH 7.34 pH Units (7.32-7.45); ABG PO2 123 mmHg (85-104); ABG TCO2 24 mEq/L (20-26)
[2019-04-15 11:57] LABS: ABG Base Excess -1 mEq/L (-2 to 3); ABG Chloride 102 mEq/L (98-107); ABG Glucose 186 mg/dL (60-95); ABG HCO3 24 mEq/L (21-27); ABG PCO2 39 mmHg (35-45); ABG PO2 > 630 mmHg (85-104); ABG TCO2 25 mEq/L (20-26)
[2019-04-15 12:31] LABS: ABG Base Excess 0 mEq/L (-2 to 3); ABG Chloride 101 mEq/L (98-107); ABG Glucose 166 mg/dL (60-95); ABG HCO3 25 mEq/L (21-27); ABG Ionized Calcium 0.99 mmol/L (1.15-1.35); ABG Oxygen Saturation 100 % (95-98); ABG PCO2 38 mmHg (35-45); ABG PH 7.42 pH Units (7.32-7.45); ABG PO2 561 mmHg (85-104); ABG TCO2 26 mEq/L (20-26)
[2019-04-15] MEDS ORDERED: Albumin Human 5% 12.5 GM/250 ML IV.SOLN ONE ×2 (12:31→13:03)
[2019-04-15 12:49] LABS: ABG Base Excess 1 mEq/L (-2 to 3); ABG Chloride 102 mEq/L (98-107); ABG Glucose 129 mg/dL (60-95); ABG HCO3 25 mEq/L (21-27); ABG Oxygen Saturation 100 % (95-98); ABG PCO2 38 mmHg (35-45); ABG PH 7.43 pH Units (7.32-7.45); ABG PO2 559 mmHg (85-104); ABG TCO2 26 mEq/L (20-26)
[2019-04-15 13:13] LABS: ABG Base Excess -1 mEq/L (-2 to 3); ABG Chloride 102 mEq/L (98-107); ABG Glucose 124 mg/dL (60-95); ABG HCO3 25 mEq/L (21-27); ABG Ionized Calcium 1.41 mmol/L (1.15-1.35); ABG Oxygen Saturation 97 % (95-98); ABG PCO2 48 mmHg (35-45); ABG PH 7.33 pH Units (7.32-7.45); ABG PO2 96 mmHg (85-104); ABG TCO2 26 mEq/L (20-26)
[2019-04-15] MEDS ORDERED: *HR* Dextrose 50 % in Water (Syg) 50 ML SYRINGE IVP PRN (13:37)
[2019-04-15] MEDS ORDERED: Insulin Regular, Human 100 UNIT/ML IV PRN (13:37)
[2019-04-15] MEDS ORDERED: Potassium Chloride 40 MEQ/200 ML BAG IVPB PRN (13:37)
[2019-04-15] MEDS ORDERED: Acetaminophen 325 MG TABLET PO PRN (13:37)
[2019-04-15] MEDS ORDERED: *HR* Promethazine 25 MG/ML VIAL IVP PRN (13:37)
[2019-04-15] MEDS: Loratadine 10 MG TABLET PO SCH (13:47)
[2019-04-15] MEDS: Sennosides/Docusate Sodium TABLET PO SCH ×2 (13:47→21:21)
[2019-04-15] MEDS: Ranolazine 500 MG TAB.ER.12H PO SCH (13:47)
[2019-04-15] MEDS: Albumin Human 5% 12.5 GM/250 ML IV.SOLN IVPB PRN ×4 (14:10→17:30)
[2019-04-15] MEDS ORDERED: D5% in Water 250 ML IV BAG IV ONE (14:18)
[2019-04-15] MEDS ORDERED: *HR* Magnesium Sulfate 2 GM/50 ML PIGGYBACK IVPB ONE (14:18)
[2019-04-15] MEDS ORDERED: Albumin Human 25% 25 GM/100 ML IV.SOLN IV ONE (14:18)
[2019-04-15] MEDS ORDERED: *HR* Phenylephrine 10 MG/ML VIAL IVC ONE (14:18)
[2019-04-15] MEDS ORDERED: Tranexamic Acid 1,000 MG/10 ML VIAL IVP ONE (14:18)
[2019-04-15] MEDS ORDERED: Mannitol 25% vial 12.5 GM/50 ML VIAL IVP ONE (14:18)
[2019-04-15] MEDS ORDERED: Lidocaine 2% Syringe 100 MG/5 ML IV ONE (14:18)
[2019-04-15] MEDS ORDERED: Heparin 1,000 UNITS/500 mL IV.SOLN IVC ONE (14:18)
[2019-04-15 14:22] LABS: ABG Base Excess -2 mEq/L (-2 to 3); ABG HCO3 25 mEq/L (21-27); ABG Oxygen Saturation 98 % (95-98); ABG PCO2 54 mmHg (35-45); ABG PH 7.27 pH Units (7.32-7.45); ABG PO2 113 mmHg (85-104); ABG TCO2 27 mEq/L (20-26)
[2019-04-15 14:24] LABS: Basophils # 0.1 K/mcL (0.0-0.2); Basophils % 0.3 %; Eosinophils # 0.3 K/mcL (0.0-0.6); Eosinophils % 1.8 %; Hematocrit 32.5 % (37.5-50.1); Immature Granulocytes % 0.8 % (0-4); Lymphocytes # 2.6 K/mcL (0.6-4.6); Lymphocytes % 15.9 %; Mean Corpuscular HGB Conc 33.5 g/dL (31.6-35.5); Mean Corpuscular Hemoglobin 30.4 pg (28.0-33.3); Mean Corpuscular Volume 90.8 fL (83.0-100.0); Mean Platelet Volume 9.6 fL (9.4-12.4); Monocytes # 1.1 K/mcL (0.0-1.3); Monocytes % 6.4 %; Neutrophils # 12.3 K/mcL (1.6-8.9); Platelet Count 108 K/mcL (140-400); Red Blood Count 3.58 M/mcL (4.19-5.50); Red Cell Distribution Width 13.2 % (11.5-14.5); Segmented Neutrophils % 74.8 %
[2019-04-15 14:26] LABS: Hemoglobin 10.9 g/dL (12.9-16.9); White Blood Count 16.5 K/mcL (4.3-11.1)
[2019-04-15 14:34] LABS: Heparin anti-factor XA UFH < 0.04 IU/mL (0.30-0.70); INR 1.3
[2019-04-15 14:40] LABS: BUN/Creatinine Ratio 14 (6-26); Blood Urea Nitrogen 11 mg/dL (8-23); Calcium 8.5 mg/dL (8.6-10.3); Carbon Dioxide 23 mEq/L (23-29); Chloride 110 mEq/L (98-107); Glucose 141 mg/dL (70-105); Magnesium 2.3 mg/dL (1.6-2.6); Osmolality,Calculated 284 (280-300); Potassium 4.2 mEq/L (3.5-5.1); Sodium 136 mEq/L (136-145); eGFR For African Americans > 60 (> 60); eGFR For Non-African Americans > 60 (> 60)
[2019-04-15 14:52] LABS: ABG Base Excess -4 mEq/L (-2 to 3); ABG Chloride 105 mEq/L (98-107); ABG Glucose 199 mg/dL (60-95); ABG HCO3 23 mEq/L (21-27); ABG Ionized Calcium 1.06 mmol/L (1.15-1.35); ABG Oxygen Saturation 100 % (95-98); ABG PCO2 51 mmHg (35-45); ABG PH 7.26 pH Units (7.32-7.45); ABG PO2 233 mmHg (85-104); ABG TCO2 24 mEq/L (20-26)
[2019-04-15] MEDS ORDERED: *HR* FentaNYL (PF) 250 MCG/5 ML VIAL ONE (15:07)
[2019-04-15] MEDS: niCARdipine 20 MG in 0.9 % Sodium Chloride 192 ML IVC SCH (16:05)
[2019-04-15] MEDS: 0.9 % Sodium Chloride 1,000 ML IVC SCH (16:22)
[2019-04-15 16:25] LABS: ABG Base Excess 2 mEq/L (-2 to 3); ABG HCO3 28 mEq/L (21-27); ABG Oxygen Saturation 96 % (95-98); ABG PCO2 51 mmHg (35-45); ABG PH 7.36 pH Units (7.32-7.45); ABG PO2 89 mmHg (85-104); ABG TCO2 30 mEq/L (20-26); Blood Gas Modality ASSIST CONTROL; Blood Gas VT 650 cc
[2019-04-15] MEDS: ceFAZolin 2,000 MG in 0.9 % Sodium Chloride 100 ML IVPB SCH (16:27)
[2019-04-15 16:28] LABS: Mean Corpuscular Volume 89.1 fL (83.0-100.0); Red Cell Distribution Width 13.4 % (11.5-14.5)
[2019-04-15 16:30] LABS: Hematocrit 26.9 % (37.5-50.1); Hemoglobin 9.1 g/dL (12.9-16.9); Immature Platelets 2.4 % (1.1-6.1); Mean Corpuscular HGB Conc 33.8 g/dL (31.6-35.5); Mean Corpuscular Hemoglobin 30.1 pg (28.0-33.3); Mean Platelet Volume 9.3 fL (9.4-12.4); Monocytes # 0.7 K/mcL (0.0-1.3); Red Blood Count 3.02 M/mcL (4.19-5.50); White Blood Count 7.3 K/mcL (4.3-11.1)
[2019-04-15 16:32] LABS: Platelet Count 90 K/mcL (140-400)
[2019-04-15 16:34] LABS: INR 1.2; Prothrombin Time 13.5 Seconds (9.4-12.1)
[2019-04-15 16:36] LABS: Activated Partial Thrombo Time 29.5 Seconds (26.0-36.0)
[2019-04-15] MEDS: Insulin Human Regular 100 UNIT in 0.9 % Sodium Chloride 100 ML IVC SCH (16:37)
[2019-04-15] MEDS: Norepinephrine 4 MG in 0.9 % Sodium Chloride 250 ML IVC SCH ×2 (16:38→21:29)
[2019-04-15] MEDS ORDERED: 0.9 % Sodium Chloride 250 ML ONE (16:40)
[2019-04-15 16:44] LABS: BUN/Creatinine Ratio 12 (6-26); Blood Urea Nitrogen 10 mg/dL (8-23); Calcium 9.3 mg/dL (8.6-10.3); Carbon Dioxide 28 mEq/L (23-29); Chloride 106 mEq/L (98-107); Glucose 151 mg/dL (70-105); Osmolality,Calculated 290 (280-300); Sodium 139 mEq/L (136-145); eGFR For African Americans > 60 (> 60); eGFR For Non-African Americans > 60 (> 60)
[2019-04-15 17:13] LABS: Basophils # 0.2 K/mcL (0.0-0.2); Lymphocytes # 0.4 K/mcL (0.6-4.6); Platelet Estimate Decreased (Normal)
[2019-04-15] MEDS: *HR* FentaNYL (PF) 100 MCG/2 ML VIAL IVP PRN ×3 (17:30→22:52)
[2019-04-15] MEDS: *HR* OxyCODONE/APAP 5/325 TABLET PO PRN ×2 (17:31→21:30)
[2019-04-15] MEDS ORDERED: Dexmedetomidine HCl 400 MCG/100 ML MLS IVC ONE (17:48)
[2019-04-15] MEDS: Dexmedetomidine HCl 400 MCG/100 ML MLS IVC SCH (17:50)
[2019-04-15] MEDS: Temazepam 15 MG CAPSULE PO SCH (21:20)
[2019-04-15 22:17] LABS: ABG Base Excess 2 mEq/L (-2 to 3); ABG HCO3 27 mEq/L (21-27); ABG Oxygen Saturation 98 % (95-98); ABG PCO2 45 mmHg (35-45); ABG PH 7.39 pH Units (7.32-7.45); ABG PO2 114 mmHg (85-104); ABG TCO2 28 mEq/L (20-26); Blood Gas Modality AF; Blood Gas VT 650 cc
[2019-04-15 22:53] LABS: ABG Base Excess 2 mEq/L (-2 to 3); ABG HCO3 27 mEq/L (21-27); ABG Oxygen Saturation 98 % (95-98); ABG PCO2 45 mmHg (35-45); ABG PH 7.39 pH Units (7.32-7.45); ABG PO2 109 mmHg (85-104); ABG TCO2 28 mEq/L (20-26); Blood Gas Modality CPAP/PS
[2019-04-16 00:09] LABS: ABG Base Excess 1 mEq/L (-2 to 3); ABG HCO3 26 mEq/L (21-27); ABG Oxygen Saturation 92 % (95-98); ABG PCO2 42 mmHg (35-45); ABG PO2 63 mmHg (85-104); ABG TCO2 27 mEq/L (20-26)
[2019-04-16] MEDS: *HR* OxyCODONE Immed Rel 5 MG TABLET PO PRN ×4 (01:43→22:19)
[2019-04-16] MEDS: ceFAZolin 2,000 MG in 0.9 % Sodium Chloride 100 ML IVPB SCH (01:50)
[2019-04-16] MEDS: Norepinephrine 4 MG in 0.9 % Sodium Chloride 250 ML IVC SCH (01:59)
[2019-04-16] MEDS: 0.9 % Sodium Chloride 1,000 ML IVC SCH (03:15)
[2019-04-16] MEDS: *HR* FentaNYL (PF) 100 MCG/2 ML VIAL IVP PRN ×2 (05:10→11:23)
[2019-04-16 06:40] LABS: Basophils % 0.1 %; Eosinophils % 0.1 %; Hematocrit 28.5 % (37.5-50.1); Hemoglobin 9.7 g/dL (12.9-16.9); Immature Granulocytes % 0.5 % (0-4); Lymphocytes # 0.9 K/mcL (0.6-4.6); Lymphocytes % 7.2 %; Mean Corpuscular Hemoglobin 29.9 pg (28.0-33.3); Monocytes # 1.2 K/mcL (0.0-1.3); Monocytes % 9.3 %; Neutrophils # 10.6 K/mcL (1.6-8.9); Platelet Count 114 K/mcL (140-400); Red Blood Count 3.24 M/mcL (4.19-5.50); Red Cell Distribution Width 14.3 % (11.5-14.5); Segmented Neutrophils % 82.8 %
[2019-04-16 06:41] LABS: White Blood Count 12.8 K/mcL (4.3-11.1)
[2019-04-16 07:06] LABS: BUN/Creatinine Ratio 13 (6-26); Blood Urea Nitrogen 12 mg/dL (8-23); Calcium 8.3 mg/dL (8.6-10.3); Carbon Dioxide 23 mEq/L (23-29); Chloride 109 mEq/L (98-107); Glucose 150 mg/dL (70-105); Osmolality,Calculated 291 (280-300); Potassium 3.8 mEq/L (3.5-5.1); Sodium 139 mEq/L (136-145); eGFR For African Americans > 60 (> 60); eGFR For Non-African Americans > 60 (> 60)
[2019-04-16] MEDS ORDERED: Furosemide 20 MG/2 ML VIAL IVP ONE (07:32)
[2019-04-16] MEDS: Chlorhexidine Rinse 15 ML MOUTHWASH MM SCH ×2 (07:59→20:08)
[2019-04-16] MEDS: Sennosides/Docusate Sodium TABLET PO SCH ×2 (07:59→20:09)
[2019-04-16] MEDS: Loratadine 10 MG TABLET PO SCH (07:59)
[2019-04-16] MEDS: *HR* OxyCODONE/APAP 5/325 TABLET PO PRN ×3 (07:59→18:50)
[2019-04-16] MEDS: Aspirin Enteric Coated 81 MG Tablet PO SCH (07:59)
[2019-04-16] MEDS: Pantoprazole 40 MG VIAL IVP SCH (08:00)
[2019-04-16] MEDS: niCARdipine 20 MG in 0.9 % Sodium Chloride 192 ML IVC SCH (11:55)
[2019-04-16] MEDS: Dexmedetomidine HCl 400 MCG/100 ML MLS IVC SCH (15:38)
[2019-04-16] MEDS: Insulin Human Regular 100 UNIT in 0.9 % Sodium Chloride 100 ML IVC SCH (17:23)
[2019-04-16] MEDS ORDERED: Dextrose Gel 15 GM/37.5 ML TUBE PO PRN ×2 (17:25)
[2019-04-16] MEDS ORDERED: D5% in Water 1,000 ML IVC PRN (17:25)
[2019-04-16] MEDS ORDERED: *HR* HYDROmorphone 2 MG/ML SYRINGE IVP PRN (19:05)
[2019-04-16] MEDS: Temazepam 15 MG CAPSULE PO SCH (20:09)
[2019-04-16] MEDS ORDERED: Insulin LISPRO 300 UNITS/3 ML VIAL SQ SCH (21:00)
[2019-04-16] MEDS: Ketorolac 15 MG/ML VIAL IVP SCH (23:51)
[2019-04-17] MEDS: *HR* OxyCODONE Immed Rel 5 MG TABLET PO PRN (03:29)
[2019-04-17 03:36] LABS: Hemoglobin 8.8 g/dL (12.9-16.9); Immature Granulocytes % 0.4 % (0-4); Red Cell Distribution Width 14.6 % (11.5-14.5); White Blood Count 9.4 K/mcL (4.3-11.1)
[2019-04-17 03:37] LABS: Basophils % 0.2 %; Eosinophils % 0.4 %; Hematocrit 26.2 % (37.5-50.1); Immature Platelets 2.6 % (1.1-6.1); Lymphocytes # 1.1 K/mcL (0.6-4.6); Lymphocytes % 11.7 %; Mean Corpuscular HGB Conc 33.6 g/dL (31.6-35.5); Mean Corpuscular Hemoglobin 30.4 pg (28.0-33.3); Mean Corpuscular Volume 90.7 fL (83.0-100.0); Mean Platelet Volume 9.7 fL (9.4-12.4); Monocytes % 10.3 %; Neutrophils # 7.2 K/mcL (1.6-8.9); Red Blood Count 2.89 M/mcL (4.19-5.50)
[2019-04-17 03:38] LABS: Platelet Count 95 K/mcL (140-400)
[2019-04-17 03:55] LABS: BUN/Creatinine Ratio 15 (6-26); Blood Urea Nitrogen 18 mg/dL (8-23); Calcium 8.5 mg/dL (8.6-10.3); Carbon Dioxide 27 mEq/L (23-29); Chloride 106 mEq/L (98-107); Glucose 154 mg/dL (70-105); Osmolality,Calculated 287 (280-300); Potassium 4.4 mEq/L (3.5-5.1); Sodium 136 mEq/L (136-145); eGFR For African Americans > 60 (> 60); eGFR For Non-African Americans > 60 (> 60)
[2019-04-17] MEDS: Ketorolac 15 MG/ML VIAL IVP SCH ×3 (06:10→17:57)
[2019-04-17] MEDS ORDERED: Insulin LISPRO 300 UNITS/3 ML VIAL SQ SCH (07:30)
[2019-04-17] MEDS ORDERED: 0.9 % Sodium Chloride 500 ML IVC ONE (07:38)
[2019-04-17] MEDS: Aspirin Enteric Coated 81 MG Tablet PO SCH (08:57)
[2019-04-17] MEDS: *HR* OxyCODONE/APAP 5/325 TABLET PO PRN ×2 (08:57→19:30)
[2019-04-17] MEDS: Loratadine 10 MG TABLET PO SCH (08:57)
[2019-04-17] MEDS: Sennosides/Docusate Sodium TABLET PO SCH ×2 (08:57→19:32)
[2019-04-17] MEDS: Chlorhexidine Rinse 15 ML MOUTHWASH MM SCH ×2 (08:58→19:30)
[2019-04-17] MEDS: Pantoprazole 40 MG VIAL IVP SCH (08:58)
[2019-04-17] MEDS ORDERED: Dextrose Gel 15 GM/37.5 ML TUBE PO PRN ×2 (09:41)
[2019-04-17] MEDS ORDERED: Ondansetron 4 MG/2 ML VIAL IVP PRN (09:41)
[2019-04-17] MEDS ORDERED: Nitroglycerin 0.4 MG TAB.SUBL SL PRN (09:41)
[2019-04-17] MEDS ORDERED: D5% in Water 1,000 ML IVC PRN (09:41)
[2019-04-17] MEDS ORDERED: Melatonin 3 MG TABLET PO PRN (09:41)
[2019-04-17] MEDS ORDERED: *HR* Dextrose 50 % in Water (Syg) 50 ML SYRINGE IVP PRN (09:41)
[2019-04-17] MEDS ORDERED: *HR* HYDROmorphone 2 MG/ML SYRINGE IVP PRN (09:41)
[2019-04-17] MEDS ORDERED: *HR* Promethazine 25 MG/ML VIAL IVP PRN (09:41)
[2019-04-17] MEDS ORDERED: Acetaminophen 325 MG TABLET PO PRN (09:41)
[2019-04-17] MEDS ORDERED: Naloxone 0.4 MG/ML INJ IVP PRN (09:41)
[2019-04-17] MEDS: Insulin LISPRO 300 UNITS/3 ML VIAL SQ SCH ×3 (11:52→21:20)
[2019-04-17] MEDS: Temazepam 15 MG CAPSULE PO SCH (19:31)
[2019-04-18] MEDS: Ketorolac 15 MG/ML VIAL IVP SCH ×5 (00:10→23:17)
[2019-04-18 02:02] LABS: Red Cell Distribution Width 14.5 % (11.5-14.5)
[2019-04-18 02:05] LABS: Basophils % 0.3 %; Eosinophils # 0.1 K/mcL (0.0-0.6); Eosinophils % 1.8 %; Hematocrit 23.5 % (37.5-50.1); Hemoglobin 7.8 g/dL (12.9-16.9); Immature Granulocytes % 0.6 % (0-4); Immature Platelets 2.2 % (1.1-6.1); Lymphocytes % 15.7 %; Mean Corpuscular HGB Conc 33.2 g/dL (31.6-35.5); Mean Corpuscular Hemoglobin 30.4 pg (28.0-33.3); Mean Corpuscular Volume 91.4 fL (83.0-100.0); Mean Platelet Volume 9.9 fL (9.4-12.4); Monocytes # 0.5 K/mcL (0.0-1.3); Monocytes % 8.1 %; Red Blood Count 2.57 M/mcL (4.19-5.50); Segmented Neutrophils % 73.5 %; White Blood Count 6.6 K/mcL (4.3-11.1)
[2019-04-18 02:06] LABS: Neutrophils # 4.9 K/mcL (1.6-8.9); Platelet Count 96 K/mcL (140-400)
[2019-04-18 03:20] LABS: BUN/Creatinine Ratio 19 (6-26); Blood Urea Nitrogen 23 mg/dL (8-23); Calcium 8.3 mg/dL (8.6-10.3); Carbon Dioxide 25 mEq/L (23-29); Chloride 106 mEq/L (98-107); Glucose 124 mg/dL (70-105); Osmolality,Calculated 285 (280-300); Potassium 3.5 mEq/L (3.5-5.1); Sodium 135 mEq/L (136-145); eGFR For African Americans > 60 (> 60); eGFR For Non-African Americans > 60 (> 60)
[2019-04-18] MEDS: Sennosides/Docusate Sodium TABLET PO SCH ×2 (07:57→21:16)
[2019-04-18] MEDS: Loratadine 10 MG TABLET PO SCH (07:57)
[2019-04-18] MEDS: Aspirin Enteric Coated 81 MG Tablet PO SCH (07:57)
[2019-04-18] MEDS: *HR* OxyCODONE/APAP 5/325 TABLET PO PRN ×2 (07:58→18:46)
[2019-04-18] MEDS: Chlorhexidine Rinse 15 ML MOUTHWASH MM SCH ×2 (07:58→21:16)
[2019-04-18] MEDS: Pantoprazole 40 MG VIAL IVP SCH (07:58)
[2019-04-18] MEDS: Insulin LISPRO 300 UNITS/3 ML VIAL SQ SCH ×4 (07:59→20:12)
[2019-04-18] MEDS ORDERED: 0.9 % Sodium Chloride 250 ML ONE (10:06)
[2019-04-18] MEDS: Temazepam 15 MG CAPSULE PO SCH (21:16)
[2019-04-19 04:35] LABS: Basophils % 0.3 %; Eosinophils # 0.2 K/mcL (0.0-0.6); Eosinophils % 3.7 %; Hemoglobin 8.9 g/dL (12.9-16.9); Immature Granulocytes % 0.8 % (0-4); Lymphocytes # 1.1 K/mcL (0.6-4.6); Mean Corpuscular Hemoglobin 29.8 pg (28.0-33.3); Mean Corpuscular Volume 90.3 fL (83.0-100.0); Mean Platelet Volume 9.7 fL (9.4-12.4); Monocytes # 0.6 K/mcL (0.0-1.3); Monocytes % 9.6 %; Platelet Count 114 K/mcL (140-400); Red Blood Count 2.99 M/mcL (4.19-5.50); Red Cell Distribution Width 14.4 % (11.5-14.5); Segmented Neutrophils % 67.6 %; White Blood Count 5.9 K/mcL (4.3-11.1)
[2019-04-19 04:53] LABS: BUN/Creatinine Ratio 19 (6-26); Blood Urea Nitrogen 20 mg/dL (8-23); Calcium 8.3 mg/dL (8.6-10.3); Carbon Dioxide 23 mEq/L (23-29); Chloride 107 mEq/L (98-107); Glucose 114 mg/dL (70-105); Osmolality,Calculated 287 (280-300); Potassium 3.3 mEq/L (3.5-5.1); Sodium 137 mEq/L (136-145); eGFR For African Americans > 60 (> 60); eGFR For Non-African Americans > 60 (> 60)
[2019-04-19 04:55] LABS: Phosphorous 3.4 mg/dL (2.7-4.5)
[2019-04-19 04:56] LABS: % Iron Saturation 10 % (20-55); Iron 21 mcg/dL (65-175); Transferrin 153 mg/dL (203-362)
[2019-04-19] MEDS: Ketorolac 15 MG/ML VIAL IVP SCH (05:43)
[2019-04-19] MEDS: Insulin LISPRO 300 UNITS/3 ML VIAL SQ SCH (07:38)
[2019-04-19] MEDS: Chlorhexidine Rinse 15 ML MOUTHWASH MM SCH (07:39)
[2019-04-19] MEDS: Sennosides/Docusate Sodium TABLET PO SCH (07:39)
[2019-04-19] MEDS: Aspirin Enteric Coated 81 MG Tablet PO SCH (07:39)
[2019-04-19] MEDS: Pantoprazole 40 MG VIAL IVP SCH (07:39)
[2019-04-19] MEDS: Loratadine 10 MG TABLET PO SCH (07:39)
[2019-04-19] MEDS ORDERED: FLU Vac QV 19-20 (6Month+)/PF 0.5 ML SYRINGE IM ONE (09:09)
[2019-04-19 11:01] VITALS: BP 143/83
== END 2019-04-19 14:21 | disposition home or self-care (01) | DRG 234 ==
LOC: EMEROOARM 11:23 → 2NENU 11:23 → SUATTDRO 13:14 → 2NENU 13:27 → ICNU 04-15 09:39 → 2NNU 04-17 10:12
PROVIDERS: ADMIT Internal Medicine; ATTEND Internal Medicine

== ENCOUNTER 2020-03-19 07:27 | Inpatient (IN) ==
[2020-03-19] MEDS ORDERED: 0.9 % Sodium Chloride 1,000 ML IVC ONE (07:48)
[2020-03-19] MEDS ORDERED: *HR* Metoprolol 5 MG/5 ML VIAL IVP ONE ×3 (07:48→10:08)
[2020-03-19 08:16] LABS: Basophils % 0.1 %; Eosinophils % 0.1 %; Hematocrit 46.7 % (37.5-50.1); Hemoglobin 15.7 g/dL (12.9-16.9); Immature Granulocytes % 0.3 % (0-4); Lymphocytes # 0.9 K/mcL (0.6-4.6); Lymphocytes % 13.9 %; Mean Corpuscular HGB Conc 33.6 g/dL (31.6-35.5); Mean Corpuscular Volume 89.3 fL (83.0-100.0); Mean Platelet Volume 9.9 fL (9.4-12.4); Monocytes # 0.6 K/mcL (0.0-1.3); Monocytes % 9.4 %; Neutrophils # 5.1 K/mcL (1.6-8.9); Platelet Count 131 K/mcL (140-400); Red Blood Count 5.23 M/mcL (4.19-5.50); Red Cell Distribution Width 13.3 % (11.5-14.5); Segmented Neutrophils % 76.2 %; White Blood Count 6.7 K/mcL (4.3-11.1)
[2020-03-19 08:31] LABS: Activated Partial Thrombo Time 31.6 Seconds (26.0-36.0)
[2020-03-19] MEDS ORDERED: Isovue-370 500 ML BOTTLE IVP ONE (08:33)
[2020-03-19 08:36] LABS: BUN/Creatinine Ratio 14 (6-26); Blood Urea Nitrogen 18 mg/dL (8-23); Calcium 9.2 mg/dL (8.6-10.3); Carbon Dioxide 22 mEq/L (23-29); Chloride 101 mEq/L (98-107); Glucose 187 mg/dL (70-105); Osmolality,Calculated 287 (280-300); Potassium 3.7 mEq/L (3.5-5.1); Sodium 135 mEq/L (136-145); eGFR For African Americans > 60 (> 60); eGFR For Non-African Americans 56 (> 60)
[2020-03-19 08:53] LABS: Thyroid Stimulating Hormone 0.515 mcIU/mL (0.340-5.600); Troponin I 0.05 ng/mL (< 0.04)
[2020-03-19] MEDS ORDERED: Aspirin 325 MG TABLET PO ONE (09:06)
[2020-03-19 09:17] LABS: Adenovirus Not Detected (Not Detect); Bordetella Pertussis Not Detected (Not Detect); Chlamydophila pneumoniae Not Detected (Not Detect); Coronavirus 229E Not Detected (Not Detect); Coronavirus HKU1 Not Detected (Not Detect); Coronavirus NL63 Not Detected (Not Detect); Coronavirus OC43 Not Detected (Not Detect); Human Metapneumovirus Not Detected (Not Detect); Human Rhinovirus/Enterovirus Not Detected (Not Detect); Influenza A Subtype 2009 H1 Not Detected (Not Detect); Influenza B Not Detected (Not Detect); Mycoplasma pneumoniae Not Detected (Not Detect); Parainfluenza Virus 1 Not Detected (Not Detect); Parainfluenza Virus 2 Not Detected (Not Detect); Parainfluenza Virus 3 Not Detected (Not Detect); Parainfluenza Virus 4 Not Detected (Not Detect); Respiratory Syncytial Virus Not Detected (Not Detect); SARS-CoV-2 DETECTED (Not Detect)
[2020-03-19] MEDS ORDERED: *HR* Heparin 5,000 UNIT/ML VIAL IVP ONE (10:05)
[2020-03-19] MEDS ORDERED: *HR* Heparin 5,000 UNIT/ML VIAL IVP PRN ×2 (10:05)
[2020-03-19 11:03] LABS: Hematocrit 41.9 % (37.5-50.1); Hemoglobin 14.1 g/dL (12.9-16.9); Mean Corpuscular HGB Conc 33.7 g/dL (31.6-35.5); Mean Corpuscular Hemoglobin 30.1 pg (28.0-33.3); Mean Corpuscular Volume 89.5 fL (83.0-100.0); Mean Platelet Volume 9.5 fL (9.4-12.4); Platelet Count 118 K/mcL (140-400); Red Blood Count 4.68 M/mcL (4.19-5.50); Red Cell Distribution Width 13.4 % (11.5-14.5); White Blood Count 6.2 K/mcL (4.3-11.1)
[2020-03-19] MEDS ORDERED: Naloxone 0.4 MG/ML INJ IVP PRN (11:11)
[2020-03-19] MEDS: Heparin 25,000UNIT/250ML 1/2NS 25,000 UNIT/250 ML IV.SOLN IVC SCH (11:11)
[2020-03-19 11:13] LABS: Heparin anti-factor XA UFH < 0.04 IU/mL (0.30-0.70)
[2020-03-19 11:14] LABS: INR 1.1; Prothrombin Time 12.2 Seconds (9.4-12.1)
[2020-03-19] MEDS ORDERED: Melatonin 3 MG TABLET PO PRN (21:17)
[2020-03-19] MEDS: Acetaminophen 325 MG TABLET PO PRN (21:34)
[2020-03-20 01:55] LABS: Basophils % 0.4 %; Eosinophils % 0.2 %; Hematocrit 43.4 % (37.5-50.1); Hemoglobin 14.4 g/dL (12.9-16.9); Immature Granulocytes % 0.2 % (0-4); Lymphocytes # 1.4 K/mcL (0.6-4.6); Lymphocytes % 29.6 %; Mean Corpuscular HGB Conc 33.2 g/dL (31.6-35.5); Mean Corpuscular Hemoglobin 30.1 pg (28.0-33.3); Mean Corpuscular Volume 90.8 fL (83.0-100.0); Mean Platelet Volume 9.9 fL (9.4-12.4); Monocytes # 0.6 K/mcL (0.0-1.3); Monocytes % 13.4 %; Neutrophils # 2.7 K/mcL (1.6-8.9); Platelet Count 109 K/mcL (140-400); Red Blood Count 4.78 M/mcL (4.19-5.50); Red Cell Distribution Width 13.5 % (11.5-14.5); Segmented Neutrophils % 56.2 %; White Blood Count 4.8 K/mcL (4.3-11.1)
[2020-03-20 02:06] LABS: BUN/Creatinine Ratio 12 (6-26); Blood Urea Nitrogen 15 mg/dL (8-23); Calcium 8.8 mg/dL (8.6-10.3); Carbon Dioxide 23 mEq/L (23-29); Chloride 104 mEq/L (98-107); Glucose 113 mg/dL (70-105); Osmolality,Calculated 284 (280-300); Potassium 3.6 mEq/L (3.5-5.1); Sodium 136 mEq/L (136-145); eGFR For African Americans > 60 (> 60); eGFR For Non-African Americans 60 (> 60)
[2020-03-20 02:08] LABS: Chol/HDL Ratio 3.5 (0-4.9)
[2020-03-20] MEDS ORDERED: *HR* Metoprolol 5 MG/5 ML VIAL IVP ONE ×2 (06:42→06:46)
[2020-03-20 07:36] LABS: Estimated Average Glucose 131 mg/dl; Hemoglobin A1C 6.2 %
[2020-03-20] MEDS ORDERED: Metoprolol XL (24 HR) Succ 50 MG TAB.ER.24H PO SCH (09:00)
[2020-03-20] MEDS: Aspirin Enteric Coated 81 MG Tablet PO SCH (09:45)
[2020-03-20] MEDS ORDERED: Perflutren Lipid Microsphere 1.3 ML in 0.9 % Sodium Chloride 8.7 ML IVP PRN (10:00)
[2020-03-20] MEDS ORDERED: Melatonin 3 MG TABLET PO PRN (11:21)
[2020-03-20] MEDS: 0.9 % Sodium Chloride 1,000 ML IVC SCH ×2 (11:59→21:43)
[2020-03-20] MEDS ORDERED: Benzonatate 100 MG CAPSULE PO PRN (12:34)
[2020-03-20] MEDS: Heparin 25,000UNIT/250ML 1/2NS 25,000 UNIT/250 ML IV.SOLN IVC SCH (12:49)
[2020-03-20] MEDS ORDERED: Acetaminophen 325 MG TABLET PO PRN (15:19)
[2020-03-20] MEDS ORDERED: Temazepam 15 MG CAPSULE PO SCH (21:00)
[2020-03-21] MEDS: Acetaminophen 325 MG TABLET PO PRN (00:07)
[2020-03-21 02:34] LABS: Hematocrit 43.2 % (37.5-50.1); Hemoglobin 14.1 g/dL (12.9-16.9); Immature Platelets 2.4 % (1.1-6.1); Mean Corpuscular HGB Conc 32.6 g/dL (31.6-35.5); Mean Corpuscular Hemoglobin 28.9 pg (28.0-33.3); Mean Corpuscular Volume 88.5 fL (83.0-100.0); Mean Platelet Volume 9.7 fL (9.4-12.4); Red Blood Count 4.88 M/mcL (4.19-5.50); Red Cell Distribution Width 13.3 % (11.5-14.5); White Blood Count 4.9 K/mcL (4.3-11.1)
[2020-03-21 02:52] LABS: BUN/Creatinine Ratio 18 (6-26); Blood Urea Nitrogen 16 mg/dL (8-23); Calcium 8.8 mg/dL (8.6-10.3); Carbon Dioxide 22 mEq/L (23-29); Chloride 107 mEq/L (98-107); Glucose 117 mg/dL (70-105); Magnesium 1.9 mg/dL (1.6-2.6); Osmolality,Calculated 284 (280-300); Potassium 4.2 mEq/L (3.5-5.1); Sodium 136 mEq/L (136-145); eGFR For African Americans > 60 (> 60); eGFR For Non-African Americans > 60 (> 60)
[2020-03-21] MEDS: Aspirin Enteric Coated 81 MG Tablet PO SCH (09:39)
[2020-03-21 11:30] VITALS: BP 117/69
== END 2020-03-21 13:42 | disposition home or self-care (01) | DRG 280 ==
LOC: EMEROOARM 07:27 → 2NENU 07:27 → SUATTDRO 10:45 → 2NENU 11:34
PROVIDERS: ADMIT Internal Medicine; ATTEND Internal Medicine